=== PATIENT | female | born 1950 | race Caucasian/White ===

== ENCOUNTER 2019-01-16 20:13 | Inpatient (IN) | payer OTHER ==
[~2019-01-16] VITALS: Ht 162.6 cm; Wt 72.6 kg
[2019-01-16 20:21] VITALS: Ht 162.6 cm; Wt 72.6 kg
[2019-01-17] VITALS (7 sets, daily range): BP systolic 130–168; BP diastolic 44–77
[2019-01-17] MEDS ORDERED: LIPITOR40 MG PO (00:08)
[2019-01-17] MEDS ORDERED: COZAAR100 MG PO (00:09)
[2019-01-17] MEDS ORDERED: PRILOSEC OTC20 M1 PO (00:09)
[2019-01-17] MEDS ORDERED: BAYER ASPIRIN R81 MG PO (00:10)
[2019-01-17] MEDS ORDERED: AMBIEN10 MG PO (00:11)
[2019-01-17] MEDS ORDERED: PLA75 PO (00:12)
[2019-01-17] MEDS ORDERED: ALDACTONE50 MG PO (00:12)
[2019-01-17] MEDS ORDERED: LANTUS SOLOS100 U/M1 SQ (00:13)
[2019-01-17] MEDS ORDERED: PEPCID40 MG PO (00:13)
[2019-01-17] MEDS ORDERED: TOPROL XL25 MG PO (00:13)
[2019-01-17] MEDS ORDERED: PROINH INH (00:14)
[2019-01-17 00:18] LABS: BASOPHIL % 0.3 % (0-2); RED CELL DISTRIBUTION WIDTH 13.9 % (11.5-14.5)
[2019-01-17 00:19] LABS: PLATELET COUNT 97 x10^3mcL (130-400)
[2019-01-17 00:20] LABS: CALCIUM 10.1 mg/dL (8.5-10.1); CARBON DIOXIDE 27.9 mmol/L (21-32); CREATININE SERUM 1.2 mg/dL (0.6-1.0); POTASSIUM SERUM 4.2 mmol/L (3.5-5.1)
[2019-01-17 00:25] LABS: ALBUMIN 3.6 g/dL (3.4-5.0); BILIRUBIN TOTAL 0.9 mg/dL (0.20-1.00); TOTAL PROTEIN, SERUM 7.9 g/dL (6.4-8.2)
[2019-01-17 04:30] LABS: MAGNESIUM 1.7 mg/dL (1.8-2.4)
[2019-01-17 04:43] LABS: BASOPHIL % 0.5 % (0-2); RED CELL DISTRIBUTION WIDTH 14.4 % (11.5-14.5)
[2019-01-17 04:49] LABS: CALCIUM 9.3 mg/dL (8.5-10.1); CARBON DIOXIDE 26.9 mmol/L (21-32); CREATININE SERUM 1.2 mg/dL (0.6-1.0); POTASSIUM SERUM 4.2 mmol/L (3.5-5.1)
[2019-01-17 04:54] LABS: PLATELET COUNT 86 x10^3mcL (130-400)
[2019-01-17 06:56] LABS: microscopic required? YES; urine erythrocyte TRACE (NEGATIVE)
[2019-01-18 05:43] VITALS: BP 136/67
[2019-01-18 07:01] LABS: CALCIUM 9.5 mg/dL (8.5-10.1); CARBON DIOXIDE 27.4 mmol/L (21-32); CHLORIDE SERUM 107 mmol/L (98-107); CREATININE SERUM 0.9 mg/dL (0.6-1.0); GFR1 > 60 mL/min; GLUCOSE SERUM 188 mg/dL (74-106); MAGNESIUM 1.8 mg/dL (1.8-2.4); POTASSIUM SERUM 4.2 mmol/L (3.5-5.1); SODIUM SERUM 142 mmol/L (136-145)
[2019-01-18 07:38] LABS: BASOPHIL % 0.6 % (0-2)
[2019-01-18 07:39] LABS: PLATELET COUNT 88 x10^3mcL (130-400)
[2019-01-18 10:22] VITALS: BP 123/46
[2019-01-18 15:29] VITALS: BP 123/46
[2019-01-18] MEDS ORDERED: LAC PO (17:37)
[2019-01-18] MEDS ORDERED: AMOXICILLIN500 M1 PO (17:37)
[2019-01-18 17:40] VITALS: BP 208/98
[2019-01-18 17:42] VITALS: BP 114/49
== END 2019-01-18 18:50 | disposition home or self-care (01) | DRG 391 ==
LOC: ED 20:13 → DU 01-17 03:01
PROVIDERS: Emergency Medicine; General Practice; ADMIT Internal Medicine
DX: K21.9 Gastro-esophageal reflux disease without esophagitis (principal); N17.0 Acute kidney failure with tubular necrosis; D68.69 Other thrombophilia; E11.65 Type 2 diabetes mellitus with hyperglycemia; I10 Essential (primary) hypertension; E78.5 Hyperlipidemia, unspecified; E83.42 Hypomagnesemia; R74.0 Nonspecific elevation of levels of transaminase and lactic acid dehydrogenase [LDH]; Z79.4 Long term (current) use of insulin; Z68.36 Body mass index [BMI] 36.0-36.9, adult; Z95.5 Presence of coronary angioplasty implant and graft; I25.10 Atherosclerotic heart disease of native coronary artery without angina pectoris
CPT/HCPCS: 82962; 83880; A9500; J1815; J2785; J7030; Q0092